=== PATIENT | male | born 1975 | race African-American/Black ===

== ENCOUNTER 2024-11-26 18:09 | Emergency (ER) | payer OTHER ==
[~2024-11-26] VITALS: Ht 188 cm; Wt 125.9 kg
[2024-11-26 18:14] VITALS: TEMP 98
[2024-11-26] MEDS ORDERED: METOPROLOL SUCC25 MG PO (18:52)
[2024-11-26] MEDS ORDERED: FUROSEMIDE40 MG PO (18:52)
[2024-11-26] MEDS ORDERED: LIPITOR20 MG PO (18:52)
[2024-11-26] MEDS ORDERED: PLAVIX75 MG PO (18:52)
[2024-11-26] MEDS ORDERED: NEURONTIN100 MG PO (18:52)
[2024-11-26] MEDS ORDERED: IVABRADINE HCL5 MG (18:52)
[2024-11-26] MEDS ORDERED: ASPIRIN EC81 MG PO (18:52)
[2024-11-26] MEDS ORDERED: NITROSTAT0.4 MG SL (18:52)
[2024-11-26] MEDS ORDERED: NOVOLOG MI100 UNIT/1 SC (18:52)
[2024-11-26] MEDS ORDERED: METHOCARBAMOL750 MG PO (18:52)
[2024-11-26] MEDS ORDERED: ENTRESTO 24 MG1 EACH (18:52)
[2024-11-26] MEDS ORDERED: FARXIGA10 MG (18:52)
[2024-11-26] MEDS: FUROSEMIDE INJ 10 MG/ML 4 ML VIAL IV ONE (19:38)
[2024-11-26 21:08] VITALS: PULSE 99; RESP 20
[2024-11-26] MEDS ORDERED: HYDROXYZINE HCL25 MG PO (21:12)
[2024-11-26 21:16] VITALS: BP 130/82; PULSE 99; RESP 20; O2SAT 97
== END 2024-11-26 21:30 | disposition home or self-care (01) ==
LOC: FSED 18:13
DX: R06.02 Shortness of breath (principal); I50.9 Heart failure, unspecified; E11.9 Type 2 diabetes mellitus without complications; I25.10 Atherosclerotic heart disease of native coronary artery without angina pectoris; E78.5 Hyperlipidemia, unspecified; F41.9 Anxiety disorder, unspecified; R94.31 Abnormal electrocardiogram [ECG] [EKG]; Z95.5 Presence of coronary angioplasty implant and graft
CPT/HCPCS: 71045; 80048; 80076; 81003; 82553; 83880; 84484; 85025; 93005; 99284; J1940